=== PATIENT | male | born 1990 | race Two or more races ===

== ENCOUNTER 2025-05-24 12:40 | Inpatient (IN) | payer MEDICAID, OTHER ==
[~2025-05-24] VITALS: Ht 175.3 cm; Wt 89.9 kg
[2025-05-24 13:10] VITALS: PULSE 62; RESP 14; O2SAT 96
[2025-05-24] MEDS: ONDANSETRON HCL 4 MG/2 ML VIAL IV ONE ×2 (13:34→14:02)
[2025-05-24] MEDS: SODIUM CHLORIDE 0.9% 1,000 ML IV ONE ×3 (13:34→22:04)
[2025-05-24] MEDS: LORazepam 2MG/ML-1ML VIAL IV ONE (13:40)
[2025-05-24 13:49] LABS: Hematocrit 40.9 % (41.0-53.0); Hemoglobin 14.1 g/dL (13.5-17.5); Mean Corpuscular Hemoglobin 30.8 pg (28.0-32.0); Mean Corpuscular Volume 89.4 fL (80.0-100.0); Nucleated Red Blood Cells % 0.1 %
[2025-05-24 14:00] LABS: Potassium 4.7 mmol/L (3.5-5.1); Sodium 143 mmol/L (136-145)
[2025-05-24 14:01] LABS: Anion Gap 8 (5-15); Carbon Dioxide 27 mmol/L (20-31)
[2025-05-24] MEDS: MORPHINE SULFATE 4 MG/ML SYR/VIAL IV ONE (14:02)
[2025-05-24 14:06] LABS: BUN/Creatinine Ratio 7.9 (10.0-20.0); Glucose 104 mg/dL (74-106)
--- NOTE | 2025-05-24 14:08 | ED.PDOC ---
History of Present Illness HPI Comments 34 y/o M, with PMHx of epilepsy presents to the ED for CC of headache. Patient states, he has been experiencing a headache with aura sudden onset, Friday (05/20/25). Patient reports, he usually experiences these symptoms prior to an epileptic episode. Patient further relays, symptoms of nausea, vomiting, and dizziness in association. Patient denies chest pain, shortness of breath, photophobia, or palpitations. No other symptoms or modifying factors are present at this time. Chief Complaint: Headache Time Seen by MD: 13:15 Reviewed Notes: Nurses Notes, Medications, Allergies Allergies: Coded Allergies: NO KNOWN ALLERGIES (Unverified , 05/24/25) Information Source: Patient Mode of Arrival: Ambulatory Severity: Moderate Timing: Days Duration: Since onset Prehospital treatment: None Past Medical History PAST MEDICAL HISTORY: Seizures Surgical History: Denies all surgeries Family History Family History: Unknown Social History Smoker: Non-Smoker Alcohol: Denies ETOH Use Drugs: Denies Drug Use Lives In: Home Constitutional: denies: chills, diaphoresis, fatigue, fever, malaise, sweats, weakness, others EENTM: denies: blurred vision, double vision, ear bleeding, ear discharge, ear drainage, ear pain, ear ringing, eye pain, eye redness, hearing loss, mouth pain, mouth swelling, nasal discharge, nose bleeding, nose congestion, nose pain, photophobia, tearing, throat pain, throat swelling, voice changes, others Respiratory: denies: cough, hemoptysis, orthopnea, SOB at rest, shortness of breath, SOB with excertion, stridor, wheezing, others Cardiovascular: denies: chest pain, dizzy spells, diaphoresis, Dyspnea on exertion, edema, irregular heart beat, left arm pain, lightheadedness, palpitations, PND, syncope, others Gastrointestinal: reports: nausea, vomiting; denies: abdomen distended, abdominal pain, blood streaked bowels, constipated, diarrhea, dysphagia, difficulty swallowing, hematemesis, melena, poor appetite, poor fluid intake, rectal bleeding, rectal pain, others Genitourinary: denies: burning, dysuria, flank pain, frequency, hematuria, incontinence, penile discharge, penile sore, pain, testicle pain, testicle swell ing, urgency, others Neurological: reports: dizziness, headache; denies: fainting, left sided numbness, left sided weakness, numbness, paresthesia, pre-existing deficit, right sided numbness, right sided weakness, seizure, speech problems, tingling, tremors, weakness, others Musculoskeletal: denies: back pain, gout, joint pain, joint swelling, muscle pain, muscle stiffness, neck pain, others Integumetry: denies: bruises, change in color, change in hair/nails, dryness, laceration, lesions, lumps, rash, wounds, others Allergic/Immunocompromised: denies: Difficulty Healing, Frequent Infections, Hives, Itching, others Hematologic/Lymphatic: denies: anemia, blood clots, easy bleeding, easy bruising, swollen glands, others Endocrine: denies: excessive hunger, excessive sweating, excessive thirst, excessive urination, flushing, intolerance to cold, intolerance to heat, unexplained weight gain, unexplained weight loss, others Psychiatric: denies: anxiety, bipolar disorder, depression, hopeless, panic disorder, schizophrenia, sleepless, suicidal, others All Other Systems: Reviewed and Negative Physical Exam General Appearance: Moderate Distress HEENT: Normal ENT Inspection, Pharynx Normal, TMs Normal Neck: Full Range of Motion, Non-Tender, Normal, Normal Inspection Respiratory: Chest Non-Tender, Lungs Clear, No Accessory Muscle Use, No Respiratory Distress, Normal Breath Sounds Cardiovascular: No Edema, No JVD, No Murmur, No Gallop, Normal Peripheral Pulses, Regular Rate/Rhythm Breast Exam: Deferred Gastrointestinal: No Organomegaly, Non Tender, No Pulsatile Mass, Normal Bowel Sounds, Soft Genitalia: Deferred Pelvic: Deferred Rectal: Deferred Extremities: No calf tenderness, Normal capillary refill, Normal inspection, Normal range of motion, Non-tender, No pedal edema Musculoskeletal : Apperance: Normal Neurologic: Alert, fortune cookie maker II-XII nml as Tested, No Motor Deficits, Normal Affect, Normal Mood, No Sensory Deficits Cerebellar Function: Normal Reflexes: Normal Skin: Dry, Normal Color, Warm Peripheral Pulses: 3+ Radial (R), 3+ Radial (L) Lymphatic: No Adenopathy Was a procedure done? Was a procedure done?: No Differential Dx Considerations may include: temporal headache, migraine, dehydration, prodrome seizure X-Ray, Labs, Meds, VS Vital Signs Date Time Temp Pulse Resp B/P (MAP) Pulse Ox O2 Delivery O2 Flow Rate FiO2 05/24/25 14:49 55 15 105/74 05/24/25 14:02 63 15 104/70 05/24/25 13:10 62 14 96 Room Air* 0 21 05/24/25 13:10 97.3 62 14 119/88 (98) 96 97.3 05/24/25 12:43 97.3 78 16 110/83 99 97.3 Lab Test 05/24/25 13:37 Range/Units White Blood Count 7.5 4.4-10.8 10^3/uL Red Blood Count 4.58 4.5-5.90 10^6/uL Hemoglobin 14.1 13.5-17.5 g/dL Hematocrit 40.9 L 41.0-53.0 % Mean Corpuscular Volume 89.4 80.0-100.0 fL Mean Corpuscular Hemoglobin 30.8 28.0-32.0 pg Mean Corpuscular Hemoglobin Concent 34.5 32.0-36.0 g/dL Red Cell Distribution Width 13.2 11.8-14.3 % Platelet Count 186 140-450 10^3/uL Mean Platelet Volume 8.3 6.9-10.8 fL Neutrophils (%) (Auto) 72.5 37.0-80.0 % Lymphocytes (%) (Auto) 19.0 10.0-50.0 % Monocytes (%) (Auto) 7.4 0.0-12.0 % Eosinophils (%) (Auto) 0.8 0.0-7.0 % Basophils (%) (Auto) 0.3 0.0-2.0 % Neutrophils # (Auto) 5.4 1.6-8.6 10 ^3/uL Lymphocytes # (Auto) 1.4 0.4-5.4 10 ^3/uL Monocytes # (Auto) 0.6 0-1.3 10 ^3/uL Eosinophils # (Auto) 0.1 0-0.8 10 ^3/uL Basophils # (Auto) 0 0-0.2 10 ^3/uL Nucleated Red Blood Cells 0.1 % Sodium Level 143 136-145 mmol/L Potassium Level 4.7 3.5-5.1 mmol/L Chloride Level 108 H 98-107 mmol/L Carbon Dioxide Level 27 20-31 mmol/L Anion Gap 8 5-15 Blood Urea Nitrogen 6 L 9-23 mg/dL Creatinine 0.76 0.700-1.30 mg/dL Glomerular Filtration Rate Calc 121 >90 mL/min BUN/Creatinine Ratio 7.9 L 10.0-20.0 Serum Glucose 104 74-106 mg/dL Calcium Level 8.5 L 8.7-10.4 mg/dL Current Medications Medications (Trade) Dose Ordered Sig/Mike Route Start Time Stop Time Status Last Admin Sodium Chloride 1,000 ml @ 1,000 mls/hr Q1H ONCE IV 05/24/25 13:30 05/24/25 14:29 DC 05/24/25 13:34 Ondansetron HCl (Zofran) 4 mg ONCE ONCE IV 05/24/25 13:30 05/24/25 13:31 DC 05/24/25 13:34 Morphine Sulfate 4 mg ONCE ONCE IV 05/24/25 14:00 05/24/25 14:01 DC 05/24/25 14:02 [place] [address] Ph: [phone] DIAGNOSTIC IMAGING Diagnostic Imaging Report : [id number] Signed PATIENT: GALILEA MARES ACCT: [id number] UNIT: [id number] : 1990 LOC: ER ROOM / BED: / AGE / SEX: 34 / M ADM STATUS: REG ER SERVICE 1318 ORDERING PHYSICIAN: JEOVANY BURGESS MD PROCEDURE(s): HWOCT - HEAD WITHOUT CONTRAST REASON: headache ORDER NUMBER(s): [id number], ACCESSION NUMBER(s): [id number] CLINICAL HISTORY: headache TECHNIQUE: Helical scanning was performed of the head from the skull base to the vertex. Multiplanar reconstructions were performed. This exam was performed according to our departmental dose optimization program. Up-to-date CT equipment and radiation dose reduction techniques are utilized as appropriate. CTDI 51.8 DLP 864 COMPARISON: None FINDINGS: There is no evidence for acute intracranial hemorrhage, acute ischemic changes, mass, mass effect, or extra-axial fluid collection. There is no hydrocephalus or midline shift. There is no effacement of the cerebral sulci and basal subarachnoid cisterns. The chapa-white matter differentiation is well maintained. There is mild asymmetric brain volume loss within the right cerebral hemisphere. The imaged paranasal sinuses are clear. IMPRESSION: No acute intracranial abnormality seen. Mild asymmetric right cerebral hemispheric brain volume loss, of uncertain etiology. Further nonemergent workup recommended. ATED BY: JEANMARIE DYSON MD DICTATED DATE/TIME: 05/24/251440 SIGNED BY: JEANMARIE DYSON MD SIGNED DATE/TIME: 05/24/251440 CC: Patient alert. Complaining of headache. CT of the head reviewed does not show any acute changes. Vitals stable. He does have these kind of symptoms prior to a seizure. He is taking his seizure medication. Establish intravenous access. Was given fluids. Was given Ativan. Was given Zofran. Explained to the patient. Continue to monitor. Time of 1ST Reevaluation: 13:45 Reevaluation 1ST: Unchanged Patient Education/Counseling: Diagnosis, Treatment, Prognosis Family Education/Counseling: Diagnosis, Treatment, Prognosis SEPSIS Sepsis Screen Date sepsis recognized/suspect: May 24, 2025 Time Sepsis recognized/suspect: 1310 Recent Procedure: No On Antibiotic Therapy: No Respiratory Rate >20: No Heart Rate >90: No Temp<36 C (96.8 F) or >38.3 C: No SBP <90 or MAP <65 mmHG: No New Acute Mental Status Change: No Is the patient on CPAP, BIPAP,: No Physician Orders Urinalysis (05/24/25 13:18) Sodium Chloride 0.9% (05/24/25 13:30) Head Without Contrast (05/24/25 13:18) Vital Signs Date Time Temp Pulse Resp B/P (MAP) Pulse Ox O2 Delivery O2 Flow Rate FiO2 05/24/25 14:49 55 15 105/74 05/24/25 14:02 63 15 104/70 05/24/25 13:10 62 14 96 Room Air* 0 21 05/24/25 13:10 97.3 62 14 119/88 (98) 96 97.3 05/24/25 12:43 97.3 78 16 110/83 99 97.3 Laboratory Tests Test 05/24/25 13:37 White Blood Count 7.5 10^3/uL (4.4-10.8) Medications Medications Dose Ordered Sig/Mike Route Start Time Stop Time Status Last Admin Dose Admin Morphine Sulfate 4 mg ONCE ONCE IV 05/24/25 14:00 05/24/25 14:01 DC 05/24/25 14:02 Ondansetron HCl 4 mg ONCE ONCE IV 05/24/25 13:30 05/24/25 13:31 DC 05/24/25 13:34 Sodium Chloride 1,000 ml @ 1,000 mls/hr Q1H ONCE IV 05/24/25 13:30 05/24/25 14:29 DC 05/24/25 13:34 Departure 1 Departure Time of Disposition: 15:15 Impression: Primary Impression: Seizure disorder Additional Impression: Autonomic disorder Disposition: ADMITTED INPATIENT Admit to: Med Surg Condition: Guarded Critical Care Note Critical Care Time?: Yes (90 min-critical care time only) Stability Stability form required: No Heart Score Heart Score: Heart Score Response (Comments) Value History N/A 0 EKG N/A 0 Age N/A 0 Risk Factors N/A 0 Troponin N/A 0 Total 0 I personally scribed for JEOVANY BURGESS MD ([email or web address]) on 05/24/25 at 14:08. Electronically submitted by Sofia Anne ([email or web address]). I personally scribed for JEOVANY BURGESS MD ([email or web address]) on 05/24/25 at 15:12. Electronically submitted by Sofia Anne ([email or web address]). JEOVANY BURGESS MD May 24, 2025 14:08
[2025-05-24 14:18] LABS: Blood Urea Nitrogen 6 mg/dL (9-23); Calcium 8.5 mg/dL (8.7-10.4); Chloride 108 mmol/L (98-107)
--- NOTE | 2025-05-24 14:44 | DVH ---
CLINICAL HISTORY: headache TECHNIQUE: Helical scanning was performed of the head from the skull base to the vertex. Multiplanar reconstructions were performed. This exam was performed according to our departmental dose optimizat ion program. Up-to-date CT equipment and radiation dose reduction techniques are utilized as appropri ate. CTDI 51.8 DLP 864 COMPARISON: None FINDINGS: There is no evidence for acute intracranial hemorrhage, acute ischemic changes, mass, mass effect, or extra-axial fluid collection. There is no hydrocephalus or midline shift. There is no effacement of the cerebral sulci and basal subarachnoid cisterns. The chapa-white matter differentiation is well charlette ntained. There is mild asymmetric brain volume loss within the right cerebral hemisphere. The imaged paranasal sinuses are clear. IMPRESSION: No acute intracranial abnormality seen. Mild asymmetric right cerebral hemispheric brain volume loss, of uncertain etiology. Further nonemer gent workup recommended.
[2025-05-24 18:17] LABS: Urine Protein, UAD Negative (Negative)
[2025-05-24] MEDS ORDERED: NITROGLYCERIN 0.4 MG SL TAB SL PRN (18:45)
[2025-05-24] MEDS ORDERED: MORPHINE SULFATE INJ 2 MG/ml SYRG IV PRN (18:45)
--- NOTE | 2025-05-24 18:57 | DVHHPRES ---
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 Headache is different in duration compared to prior episodes (typically 12 days, now persisting 5 days). Aura described as multicolored rainbow dots, associated with intermittent speech difficulty, transient double vision, and dizziness. Patient has a known seizure disorder (last tonic-clonic seizure ~10 months ago despite adherence to antiepileptics). Current medications: Phenytoin (Dilantin) 300 mg BID, Levetiracetam (Keppra) 2000 mg BID, Divalproex (Depakote) 1000 mg BID, Ativan PRN, Baclofen, and Ibuprofen. Reports compliance with AED regimen. No fever, chest pain, shortness of breath, palpitations, focal weakness, or recent weight loss. He describes transient confusion during this episode but denies status epilepticus. Last neurology follow-up was March 2024. ED Workup: Vitals: BP 105/74, HR 5566, RR 12, T 97.3F, SpO? 98% RA. CBC: WNL. BMP: Cr 0.76, GFR 121, BUN 6. Head CT: No acute intracranial abnormality. Mild right cerebral hemisphere asymmetry and volume loss of uncertain etiology. Impression: Chronic post-encephalitic cerebral changes, no acute bleed or mass. Plan in ED: Admit for further workup and management of refractory headache with seizure history. Past Medical History Epilepsy (post-Salcedo encephalitis at age 17). Chronic migraines with aura (suspected secondary to epilepsy). Past Surgical History Denies major surgeries. Family History Non-contributory. Past Social History Lives independently. Denies tobacco, alcohol, illicit drug use. On disability due to seizure disorder. Review of Systems Review of Systems Constitutional: No fever, weight loss, chills, night sweats. Neuro: Headache, aura (visual disturbances), speech slurring, transient confusion, dizziness. No persistent weakness, numbness, loss of consciousness. Cardiac: No chest pain, palpitations, syncope. Respiratory: No SOB, cough. GI: Nausea, vomiting; no abdominal pain, diarrhea. : No dysuria, hematuria. MSK: No acute joint pain. Psych: No depression, SI. Allergies: Coded Allergies: NO KNOWN ALLERGIES (Unverified , 05/24/25) Medications Current Medications Medications Dose Ordered Sig/Mike Route Start Time Stop Time Status Last Admin Dose Admin Ondansetron HCl 4 mg Q4HP PRN IV 05/24/25 18:45 Acetaminophen 650 mg Q6HP PRN PO 05/24/25 18:45 Nitroglycerin 0.4 mg Q5MINP PRN SL 05/24/25 18:45 Morphine Sulfate 2 mg Q30M PRN IV 05/24/25 18:45 Exam Vital Signs Vital Signs Date Time Temp Pulse Resp B/P (MAP) Pulse Ox O2 Delivery O2 Flow Rate FiO2 05/24/25 16:00 68 05/24/25 15:00 12 105/74 (84) 98 05/24/25 13:10 Room Air* 0 21 05/24/25 13:10 97.3 97.3 Exam General: Alert, oriented 3, lying comfortably. Neuro: Pupils equal/reactive, EOMI, no nystagmus. Mild speech hesitancy. No focal weakness or sensory deficits. Reflexes symmetric. HEENT: No meningismus. CV: Regular, bradycardic at times (HR 55). No murmurs. Pulm: Clear, no distress. Abdomen: Soft, non-tender. Extremities: No edema. Skin: No rash. Labs/Xrays Labs Test 05/24/25 13:37 05/24/25 13:18 Range/Units White Blood Count 7.5 4.4-10.8 10^3/uL Red Blood Count 4.58 4.5-5.90 10^6/uL Hemoglobin 14.1 13.5-17.5 g/dL Hematocrit 40.9 L 41.0-53.0 % Mean Corpuscular Volume 89.4 80.0-100.0 fL Mean Corpuscular Hemoglobin 30.8 28.0-32.0 pg Mean Corpuscular Hemoglobin Concent 34.5 32.0-36.0 g/dL Red Cell Distribution Width 13.2 11.8-14.3 % Platelet Count 186 140-450 10^3/uL Mean Platelet Volume 8.3 6.9-10.8 fL Neutrophils (%) (Auto) 72.5 37.0-80.0 % Lymphocytes (%) (Auto) 19.0 10.0-50.0 % Monocytes (%) (Auto) 7.4 0.0-12.0 % Eosinophils (%) (Auto) 0.8 0.0-7.0 % Basophils (%) (Auto) 0.3 0.0-2.0 % Neutrophils # (Auto) 5.4 1.6-8.6 10 ^3/uL Lymphocytes # (Auto) 1.4 0.4-5.4 10 ^3/uL Monocytes # (Auto) 0.6 0-1.3 10 ^3/uL Eosinophils # (Auto) 0.1 0-0.8 10 ^3/uL Basophils # (Auto) 0 0-0.2 10 ^3/uL Nucleated Red Blood Cells 0.1 % Sodium Level 143 136-145 mmol/L Potassium Level 4.7 3.5-5.1 mmol/L Chloride Level 108 H 98-107 mmol/L Carbon Dioxide Level 27 20-31 mmol/L Anion Gap 8 5-15 Blood Urea Nitrogen 6 L 9-23 mg/dL Creatinine 0.76 0.700-1.30 mg/dL Glomerular Filtration Rate Calc 121 >90 mL/min BUN/Creatinine Ratio 7.9 L 10.0-20.0 Serum Glucose 104 74-106 mg/dL Calcium Level 8.5 L 8.7-10.4 mg/dL Urine Color Colorless Yellow Urine Clarity Clear Clear Urine pH 7.5 5.0-9.0 Urine Specific [place] 1.013 1.001-1.035 Urine Protein Negative Negative Urine Ketones Negative Negative Urine Blood Negative Negative /uL Urine Nitrite Negative Negative Urine Bilirubin Negative Negative Urine Urobilinogen Normal Negative mg/dL Urine Leukocyte Esterase Negative Negative /uL Urine RBC <1 0 - 3 /hpf Urine Microscopic WBC < 1 0-3 /HPF Urine Squamous Epithelial Cells None seen <5 /hpf Urine Bacteria None seen None Seen /hpf Urine Glucose Normal Normal mg/dL SEPSIS Sepsis Screen Date sepsis recognized/suspect: May 24, 2025 Time Sepsis recognized/suspect: 1309 Recent Procedure: No On Antibiotic Therapy: No Respiratory Rate >20: No Heart Rate >90: No Temp<36 C (96.8 F) or >38.3 C: No SBP <90 or MAP <65 mmHG: No New Acute Mental Status Change: No Is the patient on CPAP, BIPAP,: No Physician Orders Sodium Chloride 0.9% (05/24/25 13:30) Head Without Contrast (05/24/25 13:18) Admit (05/24/25 18:44) Code Status (05/24/25 18:44) Ondansetron Hcl (Zofran) (05/24/25 18:45) Complete Blood Count (05/25/25 04:00) Condition: Fair (05/24/25 18:44) Acetaminophen Tablet (Tylenol Tablet) (05/24/25 18:45) Sequential Compression Device (05/24/25 ) Nitroglycerin Sublingual (Ntrostat Subli (05/24/25 18:45) Morphine Sulfate Injection (05/24/25 18:45) Oxygen By Nasal Cannula (05/24/25 18:44) Stat Ekg For Chest Pain (05/24/25 18:44) Notify Md Of Changes From Base (05/24/25 18:44) Assistant Account Manager For 24 Hours (05/24/25 18:44) Emergency Dysrhythmia Protocol (05/24/25 18:44) Rhythm Strips Once Every Shift (05/24/25 18:44) Phenytoin Capsule (Dilantin Capsule) (05/24/25 22:00) Levetiracetam Tablet (Keppra Tablet) (05/24/25 22:00) Divalproex Dr Tablet (Depakote "Dr" Tabl (05/24/25 22:00) NS (05/24/25 19:00) Seizure Precautions In Place (05/24/25 18:50) Fall Risk Precautions In Place QSHIFT (05/24/25 18:50) Vital Signs Date Time Temp Pulse Resp B/P (MAP) Pulse Ox O2 Delivery O2 Flow Rate FiO2 05/24/25 16:00 68 05/24/25 15:00 61 12 105/74 (84) 98 05/24/25 14:49 55 15 105/74 05/24/25 14:02 63 15 104/70 05/24/25 13:10 62 14 96 Room Air* 0 21 05/24/25 13:10 97.3 62 14 119/88 (98) 96 97.3 05/24/25 12:43 97.3 78 16 110/83 99 97.3 Laboratory Tests Test 05/24/25 13:37 White Blood Count 7.5 10^3/uL (4.4-10.8) Medications Medications Dose Ordered Sig/Mike Route Start Time Stop Time Status Last Admin Dose Admin Morphine Sulfate 4 mg ONCE ONCE IV 05/24/25 14:00 05/24/25 14:01 DC 05/24/25 14:02 4 MG Ondansetron HCl 4 mg ONCE ONCE IV 05/24/25 13:30 05/24/25 13:31 DC 05/24/25 13:34 4 MG Sodium Chloride 1,000 ml @ 1,000 mls/hr Q1H ONCE IV 05/24/25 13:30 05/24/25 14:29 DC 05/24/25 13:34 1,000 MLS/HR Assessment/Plan Assessment/Plan Assessment / Problem List 1. Migraine with aura, POA 2. Epilepsy, chronic, poorly controlled ( last breakthrough seizure 10 months ago despite AED therapy). POA 3. Bradycardia (HR 5560, asymptomatic). POA 4. 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 POA Treatment Plan Neuro / Headache: Admit to Neurology step-down / telemetry unit for seizure monitoring. Continue home AED regimen: Phenytoin 300 mg BID Levetiracetam 2000 mg BID Divalproex 1000 mg BID Ativan 1 mg PO/IV PRN breakthrough seizure. Neurology consult for AED optimization. Start IV hydration, IV antiemetics (ondansetron), pain control with acetaminophen IV ketorolac (avoid opioids if possible). Consider migraine abortive therapy (sumatriptan SC if no contraindications). EEG if persistent altered mental status. MRI brain if symptoms worsen or CT findings need clarification. Cardiac: Monitor HR/bradycardia on telemetry. If symptomatic bradycardia (<50 with syncope), consider cardiology consult. GI: IV fluids, ondansetron for nausea/vomiting. GI prophylaxis: Pantoprazole IV daily. Prophylaxis: DVT prophylaxis: SCD Stress ulcer prophylaxis: PPI as above. Seizure precautions: Bed alarms, padded rails, sitter PRN. Fall precautions given dizziness and seizure risk. Plan discussed with: Patient My Orders Orders - OSCAR MCMAHON RESIDENT Procedure Category Date Status Time Admit ADMIT 05/24/25 Transmitted 18:44 Code Status CODE 05/24/25 Transmitted 18:44 Ondansetron Hcl PHA 05/24/25 In Process (Zofran) 18:45 Complete Blood Count LAB 05/25/25 Verified 04:00 Condition: Fair NIR 05/24/25 In Process 18:44 Acetaminophen Tablet PHA 05/24/25 In Process (Tylenol Tablet) 18:45 Sequential NIR 05/24/25 In Process Compression Device Nitroglycerin PHA 05/24/25 In Process Sublingual (Ntrostat 18:45 Morphine Sulfate PHA 05/24/25 In Process Injection 18:45 Oxygen By Nasal RT 05/24/25 Transmitted Cannula 18:44 Stat Ekg For Chest [facility] 05/24/25 In Process Pain 18:44 Notify Of Changes [facility] 05/24/25 In Process From Base 18:44 Assistant Account Manager For [facility] 05/24/25 In Process 24 Hours 18:44 Emergency Dysrhythmia [facility] 05/24/25 In Process Protocol 18:44 Rhythm Strips Once [facility] 05/24/25 In Process Every Shift 18:44 Phenytoin Capsule PHA 05/24/25 Transmitted (Dilantin Capsule) 22:00 Levetiracetam Tablet PHA 05/24/25 Transmitted (Keppra Tablet) 22:[address] Tablet [facility] 05/24/25 Transmitted (Depakote "Dr" Tabl 22:00 NS PHA 05/24/25 Transmitted 19:00 Seizure Precautions [facility] 05/24/[address] 18:50 Fall Risk Precautions [facility] 05/24/[address] 18:50 Date of Service: May 24, 2025 Billing Provider: MASON KARIMI MD Common Visit Codes: [id number] INP/OBS CARE (HIGH) OSCAR MCMAHON RESIDENT May 24, 2025 18:57
[2025-05-24 21:00] VITALS: BP 103/67; PULSE 60; RESP 18; TEMP 98; O2SAT 99
[2025-05-24 21:18] VITALS: BP 103/67; PULSE 60; RESP 18; TEMP 98; O2SAT 99
[2025-05-24] MEDS: PHENYTOIN SODIUM 100 MG CAP PO SCH ×2 (21:58→22:31)
[2025-05-24] MEDS: levETIRAcetam 500 MG TAB PO SCH ×2 (21:59→22:31)
[2025-05-24] MEDS ORDERED: KEP500T PO (22:01)
[2025-05-24] MEDS ORDERED: DIVA-93 PO (22:02)
[2025-05-24] MEDS ORDERED: PHEN1CAP38 PO (22:02)
[2025-05-25 00:34] VITALS: BP 102/75; PULSE 63; RESP 16; TEMP 98; O2SAT 97
[2025-05-25 04:56] VITALS: BP 105/72; PULSE 58; RESP 16; TEMP 97.8; O2SAT 99
[2025-05-25 05:17] LABS: Hematocrit 40.7 % (41.0-53.0); Hemoglobin 14.0 g/dL (13.5-17.5); Mean Corpuscular Hemoglobin 30.7 pg (28.0-32.0); Mean Corpuscular Volume 89.3 fL (80.0-100.0); Nucleated Red Blood Cells % 0.1 %
[2025-05-25 05:39] LABS: Alanine Aminotransferase 20 U/L (7-40); Albumin 3.8 g/dL (3.2-4.8); Alkaline Phosphatase 66 U/L (46-116); Anion Gap 11 (5-15); BUN/Creatinine Ratio 11.4 (10.0-20.0); Blood Urea Nitrogen 8 mg/dL (9-23); Calcium 8.5 mg/dL (8.7-10.4); Carbon Dioxide 26 mmol/L (20-31); Chloride 108 mmol/L (98-107); Glucose 94 mg/dL (74-106); Potassium 4.0 mmol/L (3.5-5.1); Sodium 145 mmol/L (136-145); Total Protein 6.2 g/dL (5.7-8.2)
[2025-05-25 05:43] LABS: Bilirubin, Total 0.3 mg/dL (0.2-1.0)
[2025-05-25 08:00] VITALS: PULSE 60
[2025-05-25 09:00] VITALS: BP 106/74; PULSE 66; RESP 18; TEMP 97.8; O2SAT 98
[2025-05-25] MEDS: ACETAMINOPHEN 325 MG TAB PO PRN (10:27)
--- NOTE | 2025-05-25 12:17 | BSKYNEURO ---
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 No seizures in the hospital. He states he has been feeling lightheaded and has had a bad migraine since last . He says with his seizures, he has some head twitching wihcih leads to generalized shaking with no LOC. He says his last seizure was almost a one year ago. He says he gets a headache before a seizure and he sees double. No fevers or flu like symptoms. No weakness, numbness or tingling. # Scores Time of exam and NIHSS (): 05/25/2025 11:45 Level of Consciousness 1a: [0] = Alert; keenly responsive LOC Questions 1b: [0] = Answers both questions correctly LOC Commands 1c: [0] = Performs both tasks correctly Best Gaze 2: [0] = Normal Visual 3: [0] = No visual loss Facial Palsy 4: [0] = Normal symmetrical movements Motor Arm Left 5a: [0] = No drift Motor Arm Right 5b: [0] = No drift Motor Leg Left 6a: [0] = No drift Motor Leg Right 6b: [0] = No drift Limb Ataxia 7: [0] = Absent Sensory 8: [0] = Normal Best Language 9: [0] = No aphasia Dysarthria 10: [0] = Normal Extinction and Inattention 11: [0] = No abnormality NIHSS Total: 0 # PMH-FH-SH Past Medical History: Rasmussens encephalitis, seizures Medications: Dilantin 300mg BID, Depakote 2000mg BID, Keppra 2gm BID # Data Head CT: - no bleed - per radiologist read mild asymmetric R cerebral hemisphere brain loss # Assessment Impression: - Headache unclear if the etiology is migraine vs. seizure prodrome vs. CVST/inflammatory process # Plan Labs: Check Dilantin and Depakote level Imaging: (urgency: routine): - MRI Brain with AND without contrast - MR Angiogram Neck with contrast - MR Angiogram Head without contrast MRV head and neck Diagnostic Test: - EEG Medication: Continue outpatient dosing of anti-seizure medication for now Ativan prn seizure activity DVT Prophylaxis: - SCD Other: - If patient has any neurological deterioration please call me back immediately - telemetry monitoring - I have discussed my recommendations with the referring provider - seizure precautions Disposition: continue admission # Logistics Attestation of consult completion: The patient is located at: [facility]. Facility staff participated in the visit. I performed this telemedicine visit from my offsite office utilizing interactive 2 way audio and visual telecommunication technology at the request of the onsite inpatient provider. Total time spent in telemedicine encounter: I spent 30 minutes reviewing clinical data and/or imaging, obtaining history, examining the patient, communicating with the onsite care team, and in preparation of this report. # Demographics First Name: Tacho Last Name: Hu Facility: [facility] Electronically signed at 05/25/2025 12:16 ([place] Time) by Cristela Cat MD Yes CRISTELA CAT MD May 25, 2025 12:16
[2025-05-25 12:43] VITALS: BP 106/75; PULSE 72; RESP 16; TEMP 97.9; O2SAT 97
--- NOTE | 2025-05-25 13:45 | DVHPNRES ---
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 Headache is different in duration compared to prior episodes (typically 12 days, now persisting 5 days). Aura described as multicolored rainbow dots, associated with intermittent speech difficulty, transient double vision, and dizziness. Patient has a known seizure disorder (last tonic-clonic seizure ~10 months ago despite adherence to antiepileptics). Current medications: Phenytoin (Dilantin) 300 mg BID, Levetiracetam (Keppra) 2000 mg BID, Divalproex (Depakote) 1000 mg BID, Ativan PRN, Baclofen, and Ibuprofen. Reports compliance with AED regimen. No fever, chest pain, shortness of breath, palpitations, focal weakness, or recent weight loss. He describes transient confusion during this episode but denies status epilepticus. Last neurology follow-up was March 2024. Vitals: BP 105/74, HR 5566, RR 12, T 97.3F, SpO? 98% RA. Lab workup revealed CBC: WNL, BMP: Cr 0.76, GFR 121, BUN 6. Head CT: No acute intracranial abnormality. Mild right cerebral hemisphere asymmetry and volume loss of uncertain etiology. Impression: Chronic post-encephalitic cerebral changes, no acute bleed or mass. Past Medical History-Epilepsy (post-Salcedo encephalitis at age 17). Chronic migraines with aura (suspected secondary to epilepsy). Past Surgical History-Denies major surgeries. Family Sqklvbg-[id number]. Past Social History-Lives independently, Denies tobacco, alcohol, illicit drug use. On disability due to seizure disorder. onstitutional: No fever, weight loss, chills, night sweats. Neuro: Headache, aura (visual disturbances), speech slurring, transient confusion, dizziness. No persistent weakness, numbness, loss of consciousness. Cardiac: No chest pain, palpitations, syncope. Respiratory: No SOB, cough. GI: Nausea, vomiting; no abdominal pain, diarrhea. : No dysuria, hematuria. MSK: No acute joint pain. Psych: No depression, SI. Patient is seen today at bedside, labs and chart reviewed. Patient reports feeling better today, pain improving, but still having some aura. Neurology recommendation reviewed and appreciated. Objective vital signs Vital Sign Date Time Temp Pulse Resp B/P (MAP) Pulse Ox O2 Delivery O2 Flow Rate FiO2 05/25/25 12:43 97.9 72 16 106/75 (85) 97 97.9 05/24/25 21:18 Room Air* 0 21 Total Intake and Output 05/24/25 05/24/25 05/25/25 15:00 23:00 07:00 Intake Total 1000 ml 520 ml Balance 1000 ml 520 ml medications Current Medications Medications Dose Ordered Sig/Mike Route Start Time Stop Time Status Last Admin Dose Admin Ondansetron HCl 4 mg Q4HP PRN IV 05/24/25 18:45 Acetaminophen 650 mg Q6HP PRN PO 05/24/25 18:45 05/25/25 10:27 650 MG Nitroglycerin 0.4 mg Q5MINP PRN SL 05/24/25 18:45 Morphine Sulfate 2 mg Q30M PRN IV 05/24/25 18:45 Phenytoin Sodium 100 mg Q8HR PO 05/24/25 22:00 Cancel Levetiracetam 1,500 mg BID PO 05/24/25 22:00 Cancel Divalproex Sodium 1,000 mg BID PO 05/24/25 22:00 Cancel Levetiracetam 2,000 mg BID PO 05/24/25 22:15 05/25/25 08:51 2,000 MG Phenytoin Sodium 300 mg BID PO 05/24/25 22:15 05/25/25 08:52 300 MG Divalproex Sodium 2,000 mg BID PO 05/24/25 22:15 05/25/25 08:51 2,000 MG Examination General examination- awake, alert, oriented HEENT- PEERLA, no acute nasal discharge Cardiovascular- S1-S2 audible, rate and rhythm regular, no murmur Respiratory- CTAB, no wheeze or rhonchi Gastrointestinal-nontender, bowel sound+. Nondistended Musculoskeletal-no acute joint swelling or tenderness or redness Lower extremity- no leg edema Neurological- cranial nerves intact, no acute dysarthria or dysphagia Psychiatry- denies depression or SI or HI Skin- no acute rash or purpura laboratory and microbiology Laboratory Tests 05/25/25 04:33 Test 05/25/25 04:33 Range/Units Serum Glucose 94 74-106 mg/dL Problem List/Assessment/Plan Problem List/Assessment/Plan Assessment / Problem List #Migraine with aura, POA #Epilepsy, chronic, poorly controlled ( last breakthrough seizure 10 months ago despite AED therapy). POA #Bradycardia (HR 5560, asymptomatic). 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 POA -Phenytoin 300 mg BID -Levetiracetam 2000 mg BID -Divalproex 1000 mg BID -Ativan 1 mg PO/IV PRN breakthrough seizure. -Neurology consult Goals of care, Code status full code; discussed with >15 minutes PUD prophylaxis: No indication DVT prophylaxis: No indication Plan discussed with Dr. Salazar , nursing staff, Total time spent on patient evaluation, chart review, assessment and plan, discussion discussion >35 minutes Plan discussed with: Patient, Other (RN) My Orders My Orders Orders - CALISTA VILLATORO Procedure Category Date Status Time Transfer Orders XFER 05/25/25 Transmitted 10:44 CALISTA VILLATORO May 25, 2025 13:45
--- NOTE | 2025-05-25 14:30 | DVHDSRES ---
Discharge Summary Date of Admission Resident Creating Document: CALISTA VILLATORO RESIDENT May 24, 2025 at 18:44 Date of Discharge: May 25, 2025 Admitting Diagnosis Acute intractable headache, rule out stroke/seizure Labs/Diagnostic Data: Laboratory Results Test 05/25/25 04:33 05/24/25 13:37 05/24/25 13:18 White Blood Count 4.4 10^3/uL (4.4-10.8) Red Blood Count 4.56 10^6/uL (4.5-5.90) Hemoglobin 14.0 g/dL (13.5-17.5) Hematocrit 40.7 % (41.0-53.0) Mean Corpuscular Volume 89.3 fL (80.0-100.0) Mean Corpuscular Hemoglobin 30.7 pg (28.0-32.0) Mean Corpuscular Hemoglobin Concent 34.3 g/dL (32.0-36.0) Red Cell Distribution Width 13.7 % (11.8-14.3) Platelet Count 192 10^3/uL (140-450) Mean Platelet Volume 8.2 fL (6.9-10.8) Neutrophils (%) (Auto) 41.2 % (37.0-80.0) Lymphocytes (%) (Auto) 42.2 % (10.0-50.0) Monocytes (%) (Auto) 13.5 % (0.0-12.0) Eosinophils (%) (Auto) 2.5 % (0.0-7.0) Basophils (%) (Auto) 0.6 % (0.0-2.0) Neutrophils # (Auto) 1.8 10 ^3/uL (1.6-8.6) Lymphocytes # (Auto) 1.9 10 ^3/uL (0.4-5.4) Monocytes # (Auto) 0.6 10 ^3/uL (0-1.3) Eosinophils # (Auto) 0.1 10 ^3/uL (0-0.8) Basophils # (Auto) 0 10 ^3/uL (0-0.2) Nucleated Red Blood Cells 0.1 % Sodium Level 145 mmol/L (136-145) Potassium Level 4.0 mmol/L (3.5-5.1) Chloride Level 108 mmol/L (98-107) Carbon Dioxide Level 26 mmol/L (20-31) Anion Gap 11 (5-15) Blood Urea Nitrogen 8 mg/dL (9-23) Creatinine 0.70 mg/dL (0.700-1.30) Glomerular Filtration Rate Calc 124 mL/min (>90) BUN/Creatinine Ratio 11.4 (10.0-20.0) Serum Glucose 94 mg/dL (74-106) Calcium Level 8.5 mg/dL (8.7-10.4) Total Bilirubin 0.3 mg/dL (0.2-1.0) Aspartate Amino Transferase (AST) 19 U/L (13-40) Alanine Aminotransferase (ALT) 20 U/L (7-40) Alkaline Phosphatase 66 U/L (46-116) C-Reactive Protein High Sensitivity 0.13 mg/dL (<1.0) Total Protein 6.2 g/dL (5.7-8.2) Albumin 3.8 g/dL (3.2-4.8) Hemoglobin A1c 5.0 % A1C (<5.7) Thyroid Stimulating Hormone (TSH) 1.37 uIU/mL (0.55-4.78) Urine Color Colorless (Yellow) Urine Clarity Clear (Clear) Urine pH 7.5 (5.0-9.0) Urine Specific [place] 1.013 (1.001-1.035) Urine Protein Negative (Negative) Urine Ketones Negative (Negative) Urine Blood Negative /uL (Negative) Urine Nitrite Negative (Negative) Urine Bilirubin Negative (Negative) Urine Urobilinogen Normal mg/dL (Negative) Urine Leukocyte Esterase Negative /uL (Negative) Urine RBC <1 /hpf (0 - 3) Urine Microscopic WBC < 1 /HPF (0-3) Urine Squamous Epithelial Cells None seen /hpf (<5) Urine Bacteria None seen /hpf (None Seen) Urine Glucose Normal mg/dL (Normal) Other Laboratory Tests 05/25/25 04:33 Brief Hx & Hospital Course: This is a 34-year-old male with a 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 Headache is different in duration compared to prior episodes (typically 12 days, now persisting 5 days). Aura described as multicolored rainbow dots, associated with intermittent speech difficulty, transient double vision, and dizziness. Patient has a known seizure disorder (last tonic-clonic seizure ~10 months ago despite adherence to antiepileptics). Current medications: Phenytoin (Dilantin) 300 mg BID, Levetiracetam (Keppra) 2000 mg BID, Divalproex (Depakote) 1000 mg BID, Ativan PRN, Baclofen, and Ibuprofen. Reports compliance with AED regimen. No fever, chest pain, shortness of breath, palpitations, focal weakness, or recent weight loss. He describes transient confusion during this episode but denies status epilepticus. Last neurology follow-up was March 2024. Vitals: BP 105/74, HR 5566, RR 12, T 97.3F, SpO? 98% RA. Lab workup revealed CBC: WNL, BMP: Cr 0.76, GFR 121, BUN 6. Head CT: No acute intracranial abnormality. Mild right cerebral hemisphere asymmetry and volume loss of uncertain etiology. Impression: Chronic post-encephalitic cerebral changes, no acute bleed or mass. Patient was evaluated by Neurology recommended MRI Brain with AND without contrast, MR Angiogram Neck with contrast, MR Angiogram Head without contrast, MRV head and neck. Patient was restarted home medication Dilantin 300 mg p.o. b.i.d., Depakote 2000 mg p.o. b.i.d., Keppra 2000 mg p.o. b.i.d. patient is nonsedating hospital course and patient's headache improved. Patient is being discharged home with the advised to follow up with the neurologist for further evaluation and care and follow up with the MRI of the brain with the and without contrast, MR angiogram neck with contrast, MR angiogram head without contrast, MRV head and neck. Follow up with the primary care physician in 1 week. Patient was hemodynamically stable on discharge. Operations or Procedures [place] [id number] Ph: [phone] DIAGNOSTIC IMAGING Diagnostic Imaging Report : [id number] Signed PATIENT: TACHO MARES ACCT: [id number] UNIT: [id number] : 1990 LOC: ER ROOM / BED: / AGE / SEX: 34 / M ADM STATUS: REG ER SERVICE [id number] ORDERING PHYSICIAN: JEOVANY BURGESS MD PROCEDURE(s): HWOCT - HEAD WITHOUT CONTRAST REASON: headache ORDER NUMBER(s): [id number], ACCESSION NUMBER(s): [id number] CLINICAL HISTORY: headache TECHNIQUE: Helical scanning was performed of the head from the skull base to the vertex. Multiplanar reconstructions were performed. This exam was performed according to our departmental dose optimization program. Up-to-date CT equipment and radiation dose reduction techniques are utilized as appropriate. CTDI 51.8 DLP 864 COMPARISON: None FINDINGS: There is no evidence for acute intracranial hemorrhage, acute ischemic changes, mass, mass effect, or extra-axial fluid collection. There is no hydrocephalus or midline shift. There is no effacement of the cerebral sulci and basal subarachnoid cisterns. The chapa-white matter differentiation is well maintained. There is mild asymmetric brain volume loss within the right cerebral hemisphere. The imaged paranasal sinuses are clear. IMPRESSION: No acute intracranial abnormality seen. Mild asymmetric right cerebral hemispheric brain volume loss, of uncertain etiology. Further nonemergent workup recommended. ATED BY: JEANMARIE DYSON MD DICTATED DATE/TIME: 05/24/25 144 SIGNED BY: JEANMARIE DYSON MD SIGNED DATE/TIME: 05/24/25 144 CC: [place] [id number] Ph: [phone] Name: FRITZTACHO R : 1990 MR#: [id number] Admitted: 05/24/25 Discharged: Attending Phys: CALISTA VILLATORO RESIDENT [place] [facility] # Demographics Consult Type: General Neurology Patient Location: Inpatient First Name: Tacho Last Name: Fritz Date of : 1990 Age: 34 Gender: Male Facility: [facility] Time of Initial Page ( Time): 05/25/2025 11:03 First Contact with Site ([place] Time): 05/25/2025 11:03 # HPI Chief Complaint: - headache History: 34 y/o M with a 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 No seizures in the hospital. He states he has been feeling lightheaded and has had a bad migraine since last . He says with his seizures, he has some head twitching wihcih leads to generalized shaking with no LOC. He says his last seizure was almost a one year ago. He says he gets a headache before a seizure and he sees double. No fevers or flu like symptoms. No weakness, numbness or tingling. # Scores Time of exam and NIHSS ([place] Time): 05/25/2025 11:45 Level of Consciousness 1a: [0] = Alert; keenly responsive LOC Questions 1b: [0] = Answers both questions correctly LOC Commands 1c: [0] = Performs both tasks correctly Best Gaze 2: [0] = Normal Visual 3: [0] = No visual loss Facial Palsy 4: [0] = Normal symmetrical movements Motor Arm Left 5a: [0] = No drift Motor Arm Right 5b: [0] = No drift Motor Leg Left 6a: [0] = No drift Motor Leg Right 6b: [0] = No drift Limb Ataxia 7: [0] = Absent Sensory 8: [0] = Normal Best Language 9: [0] = No aphasia Dysarthria 10: [0] = Normal Extinction and Inattention 11: [0] = No abnormality NIHSS Total: 0 # PMH-FH-SH Past Medical History: Rasmussens encephalitis, seizures Medications: Dilantin 300mg BID, Depakote 2000mg BID, Keppra 2gm BID # Data Head CT: - no bleed - per radiologist read mild asymmetric R cerebral hemisphere brain loss # Assessment Impression: - Headache unclear if the etiology is migraine vs. seizure prodrome vs. CVST/inflammatory process # Plan Labs: Check Dilantin and Depakote level Imaging: (urgency: routine): - MRI Brain with AND without contrast - MR Angiogram Neck with contrast - MR Angiogram Head without contrast MRV head and neck Diagnostic Test: - EEG Medication: Continue outpatient dosing of anti-seizure medication for now Ativan prn seizure activity DVT Prophylaxis: - SCD Other: - If patient has any neurological deterioration please call me back immediately - telemetry monitoring - I have discussed my recommendations with the referring provider - seizure precautions Disposition: continue admission # Logistics Attestation of consult completion: The patient is located at: [facility]. Facility staff participated in the visit. I performed this telemedicine visit from my offsite office utilizing interactive 2 way audio and visual telecommunication technology at the request of the onsite inpatient provider. Total time spent in telemedicine encounter: I spent 30 minutes reviewing clinical data and/or imaging, obtaining history, examining the patient, communicating with the onsite care team, and in preparation of this report. 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 daily as prescribed Scheduled Divalproex Sodium (Depakote Er), 2,000 MG PO BID, (Reported) Ibuprofen (Ibuprofen), 1 TAB PO Q6HPRN Levetiracetam (Keppra Tablet), 2,000 MG PO BID, (Reported) Lorazepam (Ativan), 1 TAB PO BID, (Reported) Pantoprazole Sodium Sesquihydr (Pantoprazole Sodium), 40 MG PO DAILY Phenytoin Sodium (Dilantin Capsule), 300 MG PO BID, (Reported) Scheduled PRN Acetaminophen (Tylenol), 650 MG PO Q6HPRN PRN Ondansetron Odt 4MG Tab (Zofran Po), 4 MG PO Q6HPRN PRN Discontinued Medications Lorazepam (Ativan), 1 TAB PO BID, (Reported) Discharge Statement: "Patient was advised to return to the ER or call 911 if any headaches, dizziness, shortness of breath, chest pain, abdominal pain, bleeding, fevers, or worsening of medical condition. Patient was counseled about treatment plan, medications, possible side effects, patientverbalized understanding. All questions were answered to the best of my ability. This discharge took greater then 30 minutes in planning, reviewing documentation, counseling the patient, and discussing with other team members." ASSESSMENT ASSESSMENT Assessment Date of Service: May 25, 2025 Billing Provider: MASON KARIMI MD Common Visit Codes: 63534-OXJ/OBS DISCH DAY >30min CALISTA VILLATORO RESIDENT May 25, 2025 14:30 MASON KARIMI MD May 25, 2025 22:16
[2025-05-25] MEDS: ONDANSETRON HCL 4 MG/2 ML VIAL IV PRN (14:49)
[2025-05-25] MEDS ORDERED: LORA-655 PO ×2 (14:50→14:51)
[2025-05-25] MEDS ORDERED: ACE650RS PO (15:23)
[2025-05-25] MEDS ORDERED: ZOFR4T PO (15:23)
[2025-05-25] MEDS ORDERED: ACE650RS PR (15:23)
[2025-05-25] MEDS ORDERED: PANT40T PO (15:23)
[2025-05-25] MEDS ORDERED: IBUP-1453 PO (15:23)
[2025-05-25 16:47] VITALS: BP 118/76; PULSE 65; RESP 16; TEMP 98.1; O2SAT 99
[2025-06-01] MEDS ORDERED: ACET1CAP14 PO (17:04)
== END 2025-05-25 19:47 | disposition home or self-care (01) | DRG 54 ==
LOC: ER 12:40 → OVERFLOW 18:44 → TELE-WESTW 21:12 → WEST WING 05-25 11:37
PROVIDERS: ADMIT Student in an Organized Health Care Education/Training Program; ATTEND Student in an Organized Health Care Education/Training Program
DX: G43.109 Migraine with aura, not intractable, without status migrainosus (principal); G93.89 Other specified disorders of brain; G40.909 Epilepsy, unspecified, not intractable, without status epilepticus; Z79.899 Other long term (current) drug therapy
CPT/HCPCS: 36415; 70450; 80048; 80053; 81001; 83036; 84443; 85025; 85652; 86141; 99291; 99292; G0378; J2405